=== PATIENT | male | born 1990 | race Caucasian/White ===

== ENCOUNTER 2021-07-14 17:34 | Emergency (ER) | payer OTHER ==
[~2021-07-14] VITALS: Ht 165.1 cm; Wt 90.7 kg
[2021-07-14 18:51] LABS: ABSOLUTE EOSINOPHILS 0.1 thou/uL (0.0-0.7); ABSOLUTE LYMPHOCYTES 1.9 thou/uL (0.8-5.3); ABSOLUTE MONOCYTES 0.7 thou/uL (0.0-1.2); ABSOLUTE NEUTROPHILS 6.7 thou/uL (1.6-8.1); BASOPHILS 0.3 %; EOSINOPHILS 0.8 %; HEMATOCRIT 41.5 % (42.0-52.0); HEMOGLOBIN 14.4 gm/dL (14.0-18.0); LYMPHOCYTES 20.3 %; MCH 31.5 pg (26.0-34.0); MCHC 34.7 g/dL (28.0-37.0); MCV 90.8 fL (80.0-100.0); MONOCYTES 7.2 %; MPV 7.4 fl. (7.2-11.1); NUCLEATED RBCS 0 /100WBC; PLATELET COUNT* 295 thou/uL (150-400); POLYS 71.4 %; RBC 4.57 mil/uL (4.50-6.00); RDW-CV 13.2 % (10.5-14.5); WBC 9.4 thou/uL (4.0-11.0)
[2021-07-14 19:03] LABS: CREATININE 1.3 mg/dL (0.6-1.3); POTASSIUM 4.6 mmol/L (3.5-5.1)
[2021-07-14 19:09] LABS: ALBUMIN 3.9 g/dL (3.4-5.0); TOTAL BILIRUBIN 0.3 mg/dL (<0.1-1.0); TOTAL PROTEIN 7.7 g/dL (6.4-8.2)
[2021-07-14] MEDS ORDERED: TORADOL 10 MG T10 MG PO (20:27)
[2021-07-14] MEDS ORDERED: MEDROLDOSEPACK PO (20:27)
[2021-07-14] MEDS ORDERED: NORFLEX100 MG PO (20:27)
[2021-07-14 20:35] VITALS: BP 120/75
--- NOTE | 2021-07-15 11:13 | EKG ---
[place] [address] ELECTROCARDIOGRAM REPORT Name: NICOLE PENNINGTON Room: [facility]#: [id number] Admission: 07/14/21 Attend Phys: Discharge: 07/14/21 Date of : 89 Date of Service: 07/14/211751 Report #: [id number] THIS REPORT FOR: //name// [facility] ED Test Date: 2021-07-14 Test Time: 17:52:47 Pat Name: INCOLE PENNINGTON Department: Room: Gender: Associate Director Of Development: : 1990 Requested By: Jesus Ball Order Number: [id number] MD: Christoph Bryan Measurements Intervals [place] Rate: 88 P: 54 DE: 158 QRS: 51 QRSD: 93 T: 31 QT: 325 QTc: 394 Interpretive Statements Sinus rhythm ST elev, probable normal early repol pattern No previous ECG available for comparison Electronically Signed On 07-15-2021 11:13:45 CDT by Christoph Bryan [email or web address] <ELECTRONICALLY SIGNED> By: Christoph Bryan MD, [facility] 07/15/21 1113 1752 1752 Christoph Bryan MD, [facility] /EPI
== END 2021-07-14 20:35 | disposition home or self-care (01) ==
LOC: M.ERS 17:34
PROVIDERS: Physician Assistant
DX: M62.830 Muscle spasm of back (principal); Z20.822 Contact with and (suspected) exposure to COVID-19; R51.9 Headache, unspecified